=== PATIENT | male | born 1975 | race Caucasian/White ===

== ENCOUNTER 2018-10-25 17:22 | Emergency (ER) | payer SELFPAY | END 2018-10-25 17:45 | disposition home or self-care (01) | LOC: BURERS 17:22 | DX: K04.7 Periapical abscess without sinus (principal) | CPT/HCPCS: 99283 ==

== ENCOUNTER 2018-10-27 16:38 | Emergency (ER) | payer SELFPAY ==
[2018-10-27] MEDS ORDERED: Ibuprofen 800 MG TAB ONE (17:02)
[2018-10-27] MEDS ORDERED: Acetaminophen 500 MG TAB ONE (17:02)
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
== END 2018-10-27 17:30 | disposition home or self-care (01) ==
LOC: BURERS 16:38
DX: S60.222A Contusion of left hand, initial encounter (principal); F17.210 Nicotine dependence, cigarettes, uncomplicated; W01.198A Fall on same level from slipping, tripping and stumbling with subsequent striking against other object, initial encounter
CPT/HCPCS: 29125

== ENCOUNTER 2019-04-16 16:57 | Emergency (ER) | payer SELFPAY ==
[2019-04-16] MEDS ORDERED: Ketorolac Tromethamine 30 MG/ML VIAL ONE (17:11)
[2019-04-16 17:19] LABS: #Basophils 0.1 thou/uL (0.0-0.2); #Eosinphils 0.2 thou/uL (0.0-0.7); #Lymphocytes 1.6 thou/uL (1.20-3.40); #Monocytes 0.9 thou/uL (0.11-0.59); %Basophils 0.8 % (0.0-1.0); %Eosinophils 0.9 % (0.0-10.0); %Lymphocytes 8.8 % (21.0-51.0); %Monocytes 5.3 % (0.0-10.0); %Neutrophils 84.3 % (42.0-75.0); Hemoglobin 15.1 g/dL (14.0-18.0); Mean Corpuscular HGB CONC 33.2 g/dL (32.0-36.0); Mean Corpuscular Hemoglobin 32.1 pg (27.0-31.0); Mean Corpuscular Volume 96.4 fL (78.0-98.0); Mean Platelet Volume 8.4 fL (7.4-10.4); Platelet Count 238 thou/uL (130-400); RBC Distribution Width 12.3 % (11.5-14.5); Red Blood Cell (RBC) Count 4.71 mill/uL (4.70-6.10); White Blood Cell (WBC) Count 17.8 thou/uL (4.8-10.8)
[2019-04-16 17:22] LABS: PTT 27.9 SEC (22.9-36.1); Prothrombin Time 12.8 SEC (12.0-14.7)
[2019-04-16 17:32] LABS: ALT (SGPT) 25 U/L (8-55); AST (SGOT) 28 U/L (5-34); Albumin 4.4 g/dL (3.5-5.0); Alkaline Phosphatase 89 U/L (40-110); Anion Gap 15 mmol/L (10-20); BUN (Urea Nitrogen) 8 mg/dL (8.9-20.6); Bilirubin, Total 0.2 mg/dL (0.2-1.2); Calc. Creatinine Clearance 0 mL/min (70-130); Calcium 9.8 mg/dL (7.8-10.44); Carbon Dioxide 26 mmol/L (22-29); Chloride 104 mmol/L (98-107); Estimated GFR-MDRD 83; Globulin 2.9 g/dL (2.4-3.5); Glucose 91 mg/dL (70-105); Potassium 3.9 mmol/L (3.5-5.1); Protein, Total 7.3 g/dL (6.0-8.3); Sodium 141 mmol/L (136-145)
--- NOTE | 2019-04-16 17:47 | CT ---
EXAM: CT Brain WO Con PROVIDED CLINICAL HISTORY: Trauma COMPARISON: None FINDINGS: The ventricular system appears normal in size and morphology. There is no evidence for intracranial h emorrhage or mass effect. Postoperative changes involving the right maxillary sinus and right lateral orbital wall. Mucus retention cysts are seen in each maxillary sinus. Low-density/simple appe aring fluid is seen within the left maxillary sinus with associated fluid level. The extracranial soft tissues and osseous structures appear otherwise unremarkable. IMPRESSION: 1. No evidence for intracranial hemorrhage or mass effect. 2. Air-fluid level in the left maxillary sinus, correlate for acute sinusitis.
--- NOTE | 2019-04-16 17:49 | CT ---
EXAM: CT cervical spine PROVIDED CLINICAL HISTORY: Trauma COMPARISON: None FINDINGS: No evidence for fracture or traumatic subluxation. No prevertebral soft tissue swelling apparent. Vi sualized lung apices appear clear. Cervical degenerative changes are seen. IMPRESSION: No evidence for fracture or traumatic subluxation.
[2019-04-16] MEDS ORDERED: Acetaminophen 500 MG TAB ONE ×2 (17:55)
--- NOTE | 2019-04-16 18:01 | CT ---
EXAM: CT chest, abdomen and pelvis with IV contrast PROVIDED CLINICAL HISTORY: Trauma FINDINGS: The heart, pericardium and great vessels demonstrate no evidence for traumatic abnormality. Lungs are free of significant opacity. No pleural fluid or pneumothorax apparent. The solid abdominal organs demonstrate no evidence for traumatic abnormality. No bowel dilatation, in flammatory fat stranding, free fluid or free air apparent. The major vascular structures appear normal. Nondisplaced left L3 and L4 transverse process fractures. The osseous structures demonstrate no addit ional acute abnormality. Thoracic and lumbar spine sagittal and coronal reconstructions demonstrate normal spinal alignment and maintenance of vertebral body heights. IMPRESSION: 1. Nondisplaced left L3 and L4 transverse process fractures. 2. No additional evidence for traumatic abnormality.
== END 2019-04-16 18:29 | disposition home or self-care (01) ==
LOC: BURERS 16:57
DX: S32.039A Unspecified fracture of third lumbar vertebra, initial encounter for closed fracture (principal); S32.049A Unspecified fracture of fourth lumbar vertebra, initial encounter for closed fracture; F17.210 Nicotine dependence, cigarettes, uncomplicated; W22.8XXA Striking against or struck by other objects, initial encounter
CPT/HCPCS: 70450; 71260; 72125; 74177; 80053; 83605; 84484; 85025; 85610; 85730; 93005; 96374; J1885; L0120

== ENCOUNTER 2019-05-03 12:42 | Emergency (ER) | payer SELFPAY ==
--- NOTE | 2019-05-03 16:30 | RAD ---
CHEST TWO VIEWS: 05/03/19 Comparison is made with the 04/16/2019 CT of the thorax. There appears to be a fracture of the left fourth rib laterally. No pneumothorax or large pleural eff usion was seen. The mediastinum shows no widening or shift. The heart is normal in size and the lungs are clear. There is evidence of prior granulomatous disease throughout the chest. IMPRESSION: Probable fracture of the left fourth and maybe fifth ribs laterally. Code T POS: HOME
== END 2019-05-03 13:30 | disposition home or self-care (01) ==
LOC: BURERS 12:42
DX: S20.212A Contusion of left front wall of thorax, initial encounter (principal); F17.210 Nicotine dependence, cigarettes, uncomplicated; W17.89XA Other fall from one level to another, initial encounter
CPT/HCPCS: 71046

== ENCOUNTER 2020-02-22 09:00 | Emergency (ER) | payer OTHER, SELFPAY ==
[2020-02-22] MEDS ORDERED: Tetracaine 0.5% PF 4 ML BOT ONE (09:10)
[2020-02-22] MEDS ORDERED: Fluorescein Opthalmic Strip ONE (09:10)
[2020-02-22] MEDS ORDERED: Tobramycin Sulfate 0.3% Ophth Susp 5 ml Bottle ONE (09:40)
== END 2020-02-22 09:55 | disposition home or self-care (01) ==
LOC: BURERS 09:00
DX: S05.01XA Injury of conjunctiva and corneal abrasion without foreign body, right eye, initial encounter (principal); F17.210 Nicotine dependence, cigarettes, uncomplicated
CPT/HCPCS: 99283